=== PATIENT | female | born 1950 | race Caucasian/White ===

== ENCOUNTER → 2017-12-05 | Outpatient (CLI) | payer BC, MEDICARE ==
[~2017-12-05] MED LIST: AMARYL1 MG PO; ATENOLOL25 MG PO; CIPRO500 MG PO; CYCLOBENZAPRINE10 MG PO; DIGOXIN125 MCG PO; GABAPENTIN300 MG PO; HUMALOG MI100 UNITS/ SQ; SPIRONOLACTONE50 MG PO; TORSEMIDE100 MG PO; ULTRAM50 MG PO
--- NOTE | 2017-12-06 08:25 | Diagnostic Imaging Report ---
Exam: Right shoulderCT without contrast. History: Shoulder pain. Decreased range of motion. Pain not responding to conservative management. Comparison:None Technique: Utilizing a 64-slice multidetector CT, axial imaging was performed through the right shoulder without IV contrast. Multiplanar reformation was performed. Findings: Scattered degenerative changes are seen. No osseous erosion. No acute fracture, subluxation or evidence of avascular necrosis. Postsurgical change about the right shoulder with metallic densities in the posterior humeral head. Partially imaged cardiac wire. The visualized portion of the right lung is unremarkable. There is advanced degenerative arthrosis in the right glenohumeral and acromioclavicular joints with joint space narrowing, subchondral sclerosis, subchondral cystic change and peripheral osteophytosis. The humeral head approaches the undersurface of the acromion likely due to a rotator cuff tear. There is marked supraspinatus and mild infraspinatus muscle atrophy best seen on sagittal image 51. 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 There is marked supraspinatus and mild infraspinatus muscle atrophy. Signed by: Dr. Michael Vogt M.D. on 12/06/2017 8:21 AM
--- NOTE | 2017-12-06 13:28 | Diagnostic Imaging Report ---
History: Previous shoulder surgery. Neck pain. Comparison studies: None Technique: Axial images were obtained through the cervical region. Coronal and sagittal images reconstructed from the axial data. Intravenous contrast: None Findings: Atlantoaxial articulation: Intact Alignment: Straightening and mild reversal of the cervical spinal lordosis centered at C5-6. Mild grade 1 anterolisthesis of C3 over C4. Cervicomedullary junction: No abnormalities. Patent foramen magnum. Soft tissues: No gross abnormalities. Surgical changes: Anterior plate and screw fixation at C4 and C6. C5 corpectomy changes with graft placement. The left C4 superior plate screw has a trajectory through the medial aspect of the vertebral foramen and left neural foramen at C4-5. Single retained screw at C6 vertebral body inferior endplate. Vertebrae: No acute fractures, neoplasm or infection. Degenerative changes: C2-C3: Decreased intervertebral space with partially ossified disc. Left uncinate process hypertrophy and bilateral facet hypertrophy with patent spinal canal and foramina . C3-4: Bilateral uncinate processes and facet hypertrophy results in no significant canal stenosis and mild bilateral foraminal narrowing . C4-5: Obliterated intervertebral space with partial fusion. Posterior disc osteophyte complex, bilateral uncinate process and facet hypertrophy results in moderate right and severe left foraminal narrowing. Left metallic screw contributes to the left foraminal narrowing . Patent canal. C5-6: Obliterated intervertebral space with partial fusion. Posterior disc osteophyte complex and bilateral uncinate process hypertrophy results in mild bilateral foraminal narrowing in mild canal stenosis . C6-7: Obliterated intervertebral space with fusion. Left uncinate process hypertrophy results in mild left foraminal narrowing with patent canal . C7-T1: Decreased intervertebral space. Bilateral facet hypertrophy with patent canal and foramina . IMPRESSION: 1. Anterior fusion of the mid cervical spine as described above. 2. Severe left foraminal narrowing at C4-5 secondary to degenerative changes and left metallic screw traversing through the foramen. 3. Moderate degenerative right foraminal narrowing at C4-5. Other degenerative changes as described above. Signed by: DR Jules Tovar M.D. on 12/06/2017 1:25 PM
== END ==
LOC: CT 16:59
PROVIDERS: ATTEND Specialist
DX: M25.511 Pain in right shoulder (principal); M54.12 Radiculopathy, cervical region
CPT/HCPCS: 72125